=== PATIENT | female | born 1960 | race Caucasian/White ===

== ENCOUNTER 2021-12-03 18:27 | Inpatient (IN) | payer OTHER ==
[~2021-12-03] VITALS: Ht 177.8 cm; Wt 61.0 kg
[2021-12-03 20:08] LABS: BASOPHILS ABSOLUTE AUTO 0.02 K/mm3 (0.00-0.23); BASOPHILS PERCENT AUTO 0 % (0-2); EOSINOPHILS ABSOLUTE AUTO 0.06 K/mm3 (0.00-0.68); EOSINOPHILS PERCENT AUTO 1 % (0-6); Hematocrit 36.8 % (33.0-51.0); Hemoglobin 13.1 g/dL (11.5-16.0); IMMATURE GRAN ABSOLUTE AUTO 0.04 K/mm3 (0.00-0.10); IMMATURE GRAN PERCENT AUTO 1 % (0-1); LYMPHOCYTES ABSOLUTE AUTO 0.71 K/mm3 (0.84-5.20); LYMPHOCYTES PERCENT AUTO 16 % (21-46); MONOCYTES ABSOLUTE AUTO 0.52 K/mm3 (0.16-1.47); MONOCYTES PERCENT AUTO 11 % (4-13); Mean Corpuscular HGB 34.2 pg (26.0-34.0); Mean Corpuscular HGB Conc 35.6 g/dL (31.5-36.5); Mean Corpuscular Volume 96 fL (80-100); Mean Platelet Volume 11.5 fL (9.1-12.4); NEUTROPHILS ABSOLUTE AUTO 3.23 K/mm3 (1.96-9.15); NEUTROPHILS PERCENT AUTO 71 % (41-73); Platelet Count 154 K/mm3 (150-400); RDW Coefficient Variation 13.2 % (11.7-14.2); RDW Standard Deviation 46.2 fL (35.1-46.3); Red Blood Cell Count 3.83 M/mm3 (3.80-5.20); White Blood Cell Count 4.58 K/mm3 (4.00-11.30)
[2021-12-03 20:54] LABS: Albumin, Blood 2.5 g/dL (3.4-5.0); Albumin/Globulin Ratio 0.5 (0.8-1.8); Bun/Creatinine Ratio 22.6 (12.0-20.0); Calcium, Blood 8.2 mg/dL (8.5-10.1); Creatinine, Blood 0.97 mg/dL (0.40-1.00); Globulin, Blood 4.8 g/dL (2.2-4.0); Magnesium, Blood 0.9 mg/dL (1.6-2.4); Potassium, Blood 2.7 mmol/L (3.5-5.5); Total Protein, Blood 7.3 g/dL (6.4-8.2)
[2021-12-03 22:03] LABS: Beta-hydroxybutyrate 0.5 mg/dL (0.2-2.8)
[2021-12-03 22:21] LABS: Albumin, Blood 2.1 g/dL (3.4-5.0); Albumin/Globulin Ratio 0.5 (0.8-1.8); Bilirubin, Direct 0.5 mg/dL (0.0-0.3); Bilirubin, Indirect 0.2 mg/dL (0.1-0.7); Bilirubin, Total 0.7 mg/dL (0.1-1.0); Globulin, Blood 4.1 g/dL (2.2-4.0); Total Protein, Blood 6.2 g/dL (6.4-8.2)
[2021-12-03 22:50] LABS: Base Excess Venous -7.2 mmol/L; Bicarbonate Venous 19.5 mmol/L (24.0-30.0); PCO2 Venous 29.3 mmHg (38-42); pH Blood Venous 7.39 (7.34-7.37)
[2021-12-03 23:02] LABS: International Normalized Ratio 1.04; Prothrombin Time Results 10.9 Sec (9.7-11.5)
--- NOTE | 2021-12-04 04:32 | NUR ---
CALLED TO ROOM BY PRIMARY RN GABO. PT IN SVT WITH RATES TO 200+ PT VERY SYMPTOMATIC WITH THIS. DISCUSSED WITH PT TREATMENT WITH ADENOSINE, AND EXPECTATIONS OF MEDS. CALL MADE TO DR TAY WITH INFORMATION AND PLAN FOR ADENOSINE. 6MG ADENOSINE GIVEN WITH TEMPORARY CORRECTION. FOLLOW UP TWICE WITH [address] TAY TO ROOM ORDER RECEIVED FOR MAG. THIS GIVEN. LABS HAVE BEEN SENT. PRIMARY RN AT BEDSIDE WELL PCU CHARGE AND ICU CHARGE NURSE. PT CURRENTLY IN SINUS RHYTHM. PT TOLERATED THIS FAIR. WILL ASSIST FURTHER IF NEEDED.
[2021-12-04 05:01] LABS: Albumin, Blood 2.3 g/dL (3.4-5.0); Albumin/Globulin Ratio 0.5 (0.8-1.8); Bun/Creatinine Ratio 24.6 (12.0-20.0); Calcium, Blood 7.9 mg/dL (8.5-10.1); Creatinine, Blood 0.65 mg/dL (0.40-1.00); Globulin, Blood 4.3 g/dL (2.2-4.0); Magnesium, Blood 1.6 mg/dL (1.6-2.4); Potassium, Blood 3.9 mmol/L (3.5-5.5); Total Protein, Blood 6.6 g/dL (6.4-8.2)
--- NOTE | 2021-12-04 06:11 | NUR ---
SHIFT SUMMARY PT TO PCU FROM ED AT APROX MIDNIGHT. PT AMBULATED W/ HEAVY 2 PERSON ASSIST FROM ED STRETCHER TO PCU BED. PT ALERT, ORIENTED TO SELF, PLACE, UNAWARE OF DATE. SP02>90% ON RA. VSS. ADMIT INTAKE DONE, PT RESTING IN ROOM. SHORTLY BEFORE 0400 PT CONVERTED TO SVT, HR 200'S SEEN ON TELE. CALL PLACED TO MD TAY. GILBERTO RN IN ROOM WITH THIS RN AND MULTIPLE OTHER RNS. 6MG ADENOSINE PUSH GIVEN W/ TEMPORARY RELIEF. SHORTLY AFTER, RETURNED TO SVT. 2 MORE 12MG ADENOSINE PUSH GIVEN, THIRD TIME WITH MCC SUCCESS. 2G MAG IV PUSH GIVEN. CRASH CART IN ROOM, MD TAY IN ROOM, WELL PCU AND ICU CHARGES. PT TOLERATED WELL. HR CURRENTLY 80'S. PT HAD 2 LARGE INCONTINENT BM, LIQUID, BROWN. C/O OF ABD TENDERNESS, MODERATLY DISTENDED. FLUIDS INFUSED PER EMAR, POTASSIUM INFUSED PER EMAR. CURRENTLY SLEEPING IN ROOM. CALL LIGHT IN REACH. WILL GIVE REPORT TO ONCOMING NURSE.
--- NOTE | 2021-12-04 07:39 | NUR ---
NURSING PCU DAYSHIFT: Assumed care of pt at approx 0700. A/O, very pleasant, cooperative w/care. C/O 5/10 abd pain, denies discomfort elsewhere. Skin is fragile though intact w/no noted breakdown. General weakness t/o and requires assistance w/ADLs. CIWA 6 this a.m. Tele in place, NSR, SBP 140, HR 80-90's, no c/o CP/pressure, no noted edema. L/S cta t/o, denies dyspnea, no noted cough, O2 sat 100% on RA. Abd mildly distended and tender as previously mentioned, BT hyperactive, incontinent of urine and stool per report. PIV x2, NS TKO at this time w/folic acid and thiamine infusing as ordered. Pt denies any current needs or questions regarding plan of care. Call light in reach, ETOH w/d monitored, seizure pads in place. Awaiting rounding from PMD. Cont to monitor for any changes.
[2021-12-04 08:56] LABS: Bun/Creatinine Ratio 22.7 (12.0-20.0); Calcium, Blood 7.9 mg/dL (8.5-10.1); Creatinine, Blood 0.66 mg/dL (0.40-1.00); Potassium, Blood 3.3 mmol/L (3.5-5.5)
[2021-12-04 11:53] LABS: Source, Urine Foley catheter
[2021-12-04 11:56] LABS: Appearance, Urine Hazy (Clear); Bilirubin, Urine Neg (Neg); Blood, Urine 1+ (Neg); Color, Urine Yellow (P-Yellow); Glucose Qualitative, Urine Neg (Neg); Ketones, Urine Neg (Neg); Leukocyte Esterase, Urine 3+ (Neg); Nitrite, Urine Neg (Neg); Protein, Urine Neg (Neg); Specific Gravity, Urine 1.025 (1.003-1.022); Urobilinogen, Urine 1+ (Normal)
[2021-12-04 12:06] LABS: Bacteria Many /hpf; Squamous Epithelial Cells Few /hpf (Few)
[2021-12-04 12:47] LABS: Adenovirus F 40/41 Not Detected (NOT DETECT); Astrovirus Not Detected (NOT DETECT); Campylobacter Sp Not Detected (NOT DETECT); Cryptosporidium Not Detected (NOT DETECT); Cyclospora Cayetanensis Not Detected (NOT DETECT); E. Coli O157 Not Detected (NOT DETECT); Entamoeba Histolytica Not Detected (NOT DETECT); Enteroaggregative E. coli-EAEC Not Detected (NOT DETECT); Enteropathogenic E. coli-EPEC Not Detected (NOT DETECT); Enterotoxigenic E. coli-ETEC Not Detected (NOT DETECT); Giardia Lamblia Not Detected (NOT DETECT); Norovirus GI/GII Not Detected (NOT DETECT); Plesiomonas Shigelloides Not Detected (NOT DETECT); Rotavirus A Not Detected (NOT DETECT); Salmonella Sp Not Detected (NOT DETECT); Sapovirus Not Detected (NOT DETECT); Shiga Toxin-prod E. coli-STEC Not Detected (NOT DETECT); Shigella/Enteroin E. coli-EIEC Not Detected (NOT DETECT); Vibrio Cholerae Not Detected (NOT DETECT); Vibrio Sp Not Detected (NOT DETECT); Yersinia Enterocolitica Not Detected (NOT DETECT)
--- NOTE | 2021-12-04 16:19 | NUR ---
NURSING PCU DAYSHIFT SUMMARY: Pt has done well t/o the shift. Continued to c/o abd discomfort t/o a.m., bladder scan completed resulting in >500 with a post void of >400, FC placed, UA sent to lab. Pt continued to experience loose, jelly, blood tinged stool, specimen sent to lab, results reviewed, abd CT completed, and imodium administered. Respiratory and cardiac status unchanged. Remains SR w/no events reported by telemetry. O2 sat 99-100% on RA w/no reported dyspnea. PT/OT attempted to see pt though pt continued to refuse even after much encouragement from therapy staff and care team. Agreed to work w/PT/OT in a.m. Daughter at bedside t/o afternoon, update provided, questions answered. Pt currently resting comfortably. Denies any questions/needs. Call light in reach, cont to monitor until rpt is given to accepting RN.
[2021-12-05 05:04] LABS: BASOPHILS ABSOLUTE AUTO 0.02 K/mm3 (0.00-0.23); BASOPHILS PERCENT AUTO 1 % (0-2); EOSINOPHILS PERCENT AUTO 3 % (0-6); Hematocrit 35.9 % (33.0-51.0); Hemoglobin 12.2 g/dL (11.5-16.0); IMMATURE GRAN ABSOLUTE AUTO 0.03 K/mm3 (0.00-0.10); IMMATURE GRAN PERCENT AUTO 1 % (0-1); LYMPHOCYTES PERCENT AUTO 24 % (21-46); MONOCYTES PERCENT AUTO 12 % (4-13); Mean Corpuscular HGB 34.4 pg (26.0-34.0); Mean Platelet Volume 11.6 fL (9.1-12.4); NEUTROPHILS PERCENT AUTO 60 % (41-73); Platelet Count 132 K/mm3 (150-400); RDW Coefficient Variation 13.3 % (11.7-14.2); RDW Standard Deviation 49.9 fL (35.1-46.3); Red Blood Cell Count 3.55 M/mm3 (3.80-5.20); White Blood Cell Count 3.35 K/mm3 (4.00-11.30)
[2021-12-05 05:05] LABS: Mean Corpuscular Volume 101 fL (80-100)
[2021-12-05 05:40] LABS: Albumin, Blood 2.2 g/dL (3.4-5.0); Albumin/Globulin Ratio 0.5 (0.8-1.8); Bilirubin, Total 0.9 mg/dL (0.1-1.0); Bun/Creatinine Ratio 15.2 (12.0-20.0); Calcium, Blood 8.3 mg/dL (8.5-10.1); Creatinine, Blood 0.59 mg/dL (0.40-1.00); Globulin, Blood 4.3 g/dL (2.2-4.0); Potassium, Blood 4.2 mmol/L (3.5-5.5); Total Protein, Blood 6.5 g/dL (6.4-8.2)
--- NOTE | 2021-12-05 10:07 | NUR ---
CARE ASSUMPTION THIS RN ASSUMED CARE FROM TAYLOR RN AT 0700. VSS. TELE SR 87. PATIENT IS ALERT AND ORIENTED TO PLACE, TIME, YEAR, MONTH, BUT GOT THE DAY WRONG. PATIENT IS VERY SLEEPY. WILL RESPOND TO VERBAL STIMULI, BUT FALSS BACK ASLEEP. PATIENT STATED "I CANT OPEN MY EYES" THIS RN INFORMED SHE COULD AND SHE OPENED HER EYES FOR THIS RN. PERRLA. PATIENT STATED "I AM SEEING COLORS EVERYWHERE". PATIENT STATED "FEELING FUNNY AND SLEEPY". PATIETN REPROTS NO PAIN. PATIENT REPROTS NO CHEST PAIN/PRESSURE. STRONG RADIAL PULSES. CAP REFILL <3SECONDS. TRACE EDEMA IN LOWER EXTREMITIES. PATIENT REPORTS NO SHORTNESS OF BREATH. CLEAR UPPER LOBES DIM LOWER LOBES. PATIENT ABD IS TENDER IN UPPER QUADRANT AND ACTIVE. GENERALIZED WEAKNESS. SKIN IS INTACT, REDDNESS TO BOTTOM. REPOSITIONING EVERY TWO HOURS. SEE SHIFT ASSESSMENT FOR FURTHER DETAILS. CIWA 2 THIS AM, AND UPAON REASSESSMENT WAS 2 AGAIN. PATIENT HAS NO TREMORS. MD PARRISH IN TO SEE PATIENT THIS AM. DISCUSSED THE PLAN OF CARE, BUT DUE TO PATIENT FALL ASLEEP QUICKLY WAS UNABLE TO HAVE A SUCCESSFUL CONVERSATION AND WOULD COME BACK AGAIN THIS AFTERNOON. PT TRIED TO COME BY TO WORK WITH PATIENT BUT DUE TO PATIENT BEING SLEEPY, THEY STATED THEY WOULD COME BACK THIS AFTERNOON TO TRY AGAIN. PATIENT CALL LIGHT IS WITHIN REACH AND BED IN LOWEST POSITION. PLAN OF CARE IS UP TO DATE AT THIS TIME.
--- NOTE | 2021-12-05 15:06 | NUR ---
Pt stated she wanted to get back to bed. Noted CIWA was 5; Called Dr. Terrell for order for Librium 25 mg to avoid oversedation. Librium was given to the pt and then she was assisted (2 person max assist with geriwalker and gait belt) to transfer from chair to the bed. She was given broth and jello and warm blanket at her request at this time.
--- NOTE | 2021-12-05 17:10 | NUR ---
shift summary this rn gave report to florence shipley. patient neuro remains intact. ciwa score 5. patient has tremors at rest. patient did receive medication per emar and score and the onset is 1-2 hours. this rn informed the rn taking over care. no acute changes. call light within reach. plan of care up to date.
--- NOTE | 2021-12-05 21:29 | NUR ---
ASSUMED CARE OF PATIENT AT APPROXIMATELY 1910 FROM DAVID Aguirre RN. PATIENT SLEEPING IN BED DURING BEDSIDE REPORT. PATIENT ALERT AND ORIENTED TO SELF, LOCATION, AND . PATIENT STATES YEAR IS AND MONTH IS MAY; REORIENTED. CIWA 7. PATIENT IRRITABLE ABOUT NOT BEING ABLE TO EAT; CURRENTLY CLEAR LIQUID DIET. CALL DR. Timothy VOSS TO REPORT PATIENT'S IRRITIABILITY ABOUT DIET; NO ABDOMINAL PAIN, NO NAUSEA, NO VOMITING AND RECIEVED ORDERS TO ADVANCE DIET. PATIENT DENIES PAIN, NUMBNESS, TINGLING, DIZZINESS, OR NAUSEA. Q2H TURNS. NSR ON TELE; OXYGEN SATURATION ABOVE 90% ON ROOM AIR. PG MARTA S/L.
[2021-12-06 03:59] LABS: BASOPHILS ABSOLUTE AUTO 0.02 K/mm3 (0.00-0.23); BASOPHILS PERCENT AUTO 1 % (0-2); EOSINOPHILS ABSOLUTE AUTO 0.06 K/mm3 (0.00-0.68); EOSINOPHILS PERCENT AUTO 2 % (0-6); Hematocrit 29.3 % (33.0-51.0); Hemoglobin 10.1 g/dL (11.5-16.0); Mean Corpuscular HGB 34.8 pg (26.0-34.0); Mean Corpuscular HGB Conc 34.5 g/dL (31.5-36.5); Mean Corpuscular Volume 101 fL (80-100); Mean Platelet Volume 11.7 fL (9.1-12.4); Platelet Count 129 K/mm3 (150-400); RDW Coefficient Variation 13.5 % (11.7-14.2); RDW Standard Deviation 50.3 fL (35.1-46.3); White Blood Cell Count 3.48 K/mm3 (4.00-11.30)
[2021-12-06 04:07] LABS: IMMATURE GRAN ABSOLUTE AUTO 0.02 K/mm3 (0.00-0.10); IMMATURE GRAN PERCENT AUTO 1 % (0-1); LYMPHOCYTES ABSOLUTE AUTO 0.83 K/mm3 (0.84-5.20); LYMPHOCYTES PERCENT AUTO 24 % (21-46); MONOCYTES ABSOLUTE AUTO 0.45 K/mm3 (0.16-1.47); MONOCYTES PERCENT AUTO 13 % (4-13); NEUTROPHILS PERCENT AUTO 60 % (41-73)
[2021-12-06 04:16] LABS: Albumin, Blood 1.9 g/dL (3.4-5.0); Albumin/Globulin Ratio 0.5 (0.8-1.8); Bilirubin, Total 0.5 mg/dL (0.1-1.0); Bun/Creatinine Ratio 15.6 (12.0-20.0); Calcium, Blood 7.7 mg/dL (8.5-10.1); Creatinine, Blood 0.64 mg/dL (0.40-1.00); Globulin, Blood 3.8 g/dL (2.2-4.0); Potassium, Blood 4.8 mmol/L (3.5-5.5); Total Protein, Blood 5.7 g/dL (6.4-8.2)
--- NOTE | 2021-12-06 06:40 | NUR ---
PATIENT SLEPT ABOUT NINE HOURS LAST NIGHT. MEDICATED TWICE FOR CIWA. NO OTHER ACUTE CHANGES TO REPORT.
--- NOTE | 2021-12-06 09:11 | NUR ---
CARE ASSUMPTION THIS RN ASSUMED CARE FROM EMMY Paz RN AT 0700. PATIENT VSS. TELE SR 80S. SPO2 >90% ON RA. PATIENT IS ALERT AND ORIENTED TO MONTH, YEAR, PLACE, NAME, DATE OF , BUT GOT THE DAY WRONG. NEURO IS INTACT. PATINET IS DROWSY. PERRLA. [place] THIS AM 1-2. PATIENT REPORTS NO PAIN. PATIENT REPROTS NO SHORTNESS OF BREATH. CLEAR UPPER LOBES, DIM LOWER LOBES. PATIENT REPORTS NO CHEST PAIN/PRESSURE. PATIENT CAP REFILL <3SECONDS. STRONG RADAIL PULSES AND PEDIS. NO EDEMA NOTED. PATIENT ABD IS TENDER IN UPPER QUADRANT WITH PALPATION, BUT OTHERWISE NO PAIN NOTED. PATIENT CAREY CATH DRAINING WITH GRAVITY THE START OF THE SHIFT, 400 OUT. CAREY CATH DC PER MD ORDER. PATIENT SKIN IS FARGILE, BUT CLEAN. REDDNESS TO BOTTOM. REPOSITIONING EVERY TWO HOURS PATIENT ALLOWS. SEE SHIFT ASSESSMENT FRO FURTHER DETAILS. MD PARRISH INTO SEE PATIENT THIS AM. PATIENT CHANGED TO MEDICAL STATUS NO TELE. TELE HAS BEEN DISCOUNTINUED. PATIENT CAREY WAS DC PER MD ORDER. CAREY DC APPROX 0900, SEE I&O FOR EXACT TIME. PATIENT HAS NOT VOIDED YET, AND INFORMED PATIENT TO CALL RN WHEN NEEDING TO VOID SINCE CAREY IS OUT. PATIENT EDUCATED ON PLAN OF CARE AND ALCOHOL WITHDRAWAL. PLAN OF CARE IS UP TO DATE. CALL LIGHT IS WITHIN REACH AND BED IN LOWEST POSITION. PATIENT TOLERATED REGULAR DIET WITH AM. PATIENT TOOKS MEDICATIONS WHOLE WITH WATER ONE AT A TIME. WILL CONTINUE TO DO HOURLY ROUND PER UNIT PROTOCOL AND PROVIDE CARE.
--- NOTE | 2021-12-06 11:00 | NUR ---
UPDATE PATIENT HAD A COMPLETE BED BATH AND LINEN CHANGED. PATIENT REFUSED TO WORK WITH PHYSICAL THERAPY, STATING SHE WAS TOO TIRED. THIS RN ASKED PATIENT IF SHE WANTED TO GET UP TO CHAIR AND PATIENT REFUSED. PATIENT REPOSITIONED. PATIENT STATES "FEELING MUCH BETTER AND LIKE MYSELF" AFTER SHE HAD THE BED BATH. CALL LIGHT IS WITHIN REACH.
--- NOTE | 2021-12-06 17:01 | NUR ---
SHIFT SUMMARY PATIENT NEURO REMAINS INTACT. CIWA SCORES 0-2 THROUGHOUT THIS SHIFT. PATIENT WORKED WITH OCCUPATIONAL THERAPY TODAY. PATIENT IS STILL A TWO PERSON TRANSFER WITH A GAIT BELT AND FRONT WHEEL WALKER. PATIENT REFUSED TO GET UP TO USE BEDSIDE COMODE, STATING SHE WAS TOO TIRED FROM WORKING WITH THERAPY. PATIENT USED BEDPAN. PATIENT HAD A SMALL BM AND A UNMEASURED VOID AND INCONTINENT EPISODE OF URINE. PATIENT USES CALL LIGHT APPROPRIATELY. REPOSITIONING PATIENT EVERY TWO HOURS THROUGHOUT THE SHIFT. NO ACUTE CHANGES THIS SHIFT. VSS. THIS RN WILL CONTINUE TO MONITOR AND PROVIDE CARE UNTIL HAND OFF WITH NEXT SHIFT.
--- NOTE | 2021-12-06 18:16 | NUR ---
REPORT TO MEDICAL FLOOR RN THIS RN GAVE REPORT TO MEDICAL FLOOR RN CUONG AT ABOUT 1750. POST REPORT PATIENT BELONGINGS GATHERED AND TAKEN UP WITH HER TO NEW ROOM. DAUGHTER AT BEDSIDE AND AWARE OF PLAN OF WITH PATIENT TO NEW ROOM. PATIENT IN NO DISTRESS WHEN LEAVING UNIT OR TRANSFERING TO NEW ROOM. PATIENT DID COMPLAIN OF ABD AND THIS RN INFORMED OF THIS AND THAT PATIENT RECEIVE MED PER EMAR.
--- NOTE | 2021-12-06 18:35 | NUR ---
TRANSFER NOTE PATIENT TRANSFERRED TO MEDICAL FLOOR. PATIENT TRANSFERRED BY SWITCHING BEDS. PATIENTS MOM ARRIVED WITH PATIENT. PATIENT IS IN NO DISTRESS. WILL MONITOR UNTIL OIL TRUCK DRIVER.
--- NOTE | 2021-12-07 05:45 | NUR ---
SHIFT SUMMARY: PT IS A/OX3. SHE IS VERY FATIGUED AND HAS SLEPT THE MAJORITY OF THE SHIFT. SHE HAS NOT USED THE CALL BUTTON FOR NEEDS, BUT WE WILL CONTINUE TO DO FREQUENT MONITORING. SHE IS CONT/INCONTINENT. AURELIO WAS DC'D 12/06 AND SHE HAS VOIDED SINCE. SHE HAS NOT BEEN OOB THIS SHIFT, BUT IT WAS REPORTED SHE IS A 2 PA W/ GAIT. SHE WILL BE PLACEMENT TO REGAIN STRENGTH.
[2021-12-07 08:47] LABS: Bun/Creatinine Ratio 15.8 (12.0-20.0); Calcium, Blood 7.7 mg/dL (8.5-10.1); Creatinine, Blood 0.57 mg/dL (0.40-1.00); Potassium, Blood 4.2 mmol/L (3.5-5.5)
--- NOTE | 2021-12-07 17:59 | NUR ---
SHIFT SUMMARY PATIENT MEDICATED X1 FOR PAIN. PATIENT DENIES NAUSEA AND SHORTNESS OF BREATH. PATIENT IS A 2P ASSIST FOR TRANSFERS. PT SUGGESTED WE USE A SIT TO STAND OR VERA LIFT. PATIENT DID WORK WITH PT TODAY AFTER A LOT OF ENCOURAGEMENT BY MULTIPLE STAFF. PATIENT WAS UNABLE TO STAND TODAY. PATIENT HAD AN US OF THE ABDOMEN THIS AFTERNOON. PATIENT IS EATING AND DRINKING WELL. POWERGLIDE DRESSING CHANGED, VERY POSITIONAL. PATIENT IS PLEASANT AND COOPERATIVE WITH CARE.
--- NOTE | 2021-12-08 04:01 | NUR ---
SHIFT SUMMARY: PT IS A/OX3. SHE DOES NOT USE CALL BUTTON FOR NEEDS. SHE HAS BEEN MONITORED FREQUENTLY FOR INCONTINENCE OF BLADDER/BOWEL. POWER GLIDE TO MARTA DOES NOT DRAW FOR LABS. CALL LIGHT IS WITHIN REACH AND WE'LL CONTINUE TO MONITOR.
[2021-12-08 05:46] LABS: Bun/Creatinine Ratio 18.6 (12.0-20.0); Calcium, Blood 8.2 mg/dL (8.5-10.1); Creatinine, Blood 0.59 mg/dL (0.40-1.00); Potassium, Blood 4.5 mmol/L (3.5-5.5)
--- NOTE | 2021-12-08 15:15 | NUR ---
SHIFT SUMMARY PT RESTING QUIETLY AT START OF SHIFT. WOKE EASILY FOR CARE. VERY WEAK AND SLOW MOVING. ABLE TO FEED HERSELF AND TAKE MEDS WHOLE WITH H2O. NO C/O. P/T HERE THIS AFTERNOON TO WORK WITH PT. PT OOB TO STAND WITH 2 P/T STAFF. PER DR LINDSEY, PT TO D/C TO HOME WITH H/H TOMORROW. PER SHIFT REPORT, PT'S CUSTOMER CARE PROFESSIONAL IS HER DAUGHTER. PLEASANT AND CO-OP WITH CARE. DENIES FURTHER NEEDS AT THIS TIME. CALL LT IN REACH.
[2021-12-09 05:01] LABS: Calcium, Blood 8.1 mg/dL (8.5-10.1); Creatinine, Blood 0.58 mg/dL (0.40-1.00); Potassium, Blood 4.2 mmol/L (3.5-5.5)
--- NOTE | 2021-12-09 06:00 | NUR ---
SHIFT SUMMARY: PT WAS MORE ALERT THIS SHIFT. SHE WAS COOPERATIVE WITH CARE. SHE DID NOT HAVE ANY C/O PAIN. SHE IS A PROBABLE DISCHARGE HOME WITH HH. WE'LL CONTINUE TO MONITOR THE REST OF THE SHIFT.
--- NOTE | 2021-12-09 14:56 | NUR ---
SHIFT SUMMARY PT AWAKE THIS AM DURING SHIFT REPORT. PLEASANT AND CO-OP WITH CARE. SOME ATTEMPT MADE TO WORK WITH PT/OT TODAY, BUT IS VERY WEAK AND DECONDITIONED AND UNABLE TO PARTICIPATE NEEDED. PT WAS TO D/C TO HOME WITH H/H, BUT NEEDING MORE ASSISTANCE WHEN FAMILY IS AT WORK. HOSPITALISTS HERE TO SEE PT SEVERAL TIMES TODAY. DANCE THERAPIST WORKING ON SAFE D/C PLAN. PT IS CONTINENT/INCONTINENT OF BOWEL AND BLADDER. CALLS FOR BED FROST WHEN AWAKE. RESTING QUIETLY AT THIS TIME. CALL LT IN REACH.
[2021-12-10 04:49] LABS: Bun/Creatinine Ratio 17.9 (12.0-20.0); Calcium, Blood 8.4 mg/dL (8.5-10.1); Creatinine, Blood 0.56 mg/dL (0.40-1.00); Potassium, Blood 3.6 mmol/L (3.5-5.5)
--- NOTE | 2021-12-10 05:53 | NUR ---
SUMMARY NO NEW ISSUES NOTED. PT PLESANT AND COOPERATIVE. PT SLEPT FOR MOST OF SHIFT WITHOUT COMPLAINT. CALL LIGHT IN REACH AND BED ALARM ON
--- NOTE | 2021-12-10 15:08 | NUR ---
SHIFT SUMMARY PT AWAKE AT START OF SHIFT, RESTING QUIETLY WATCHING TV. INCONTINENT OF URINE; PT CLEANED AND CHANGED. UA ORDERED EARLY, AND PT AGREED TO TRY AND USE BEDPAN; UNSUCCESSFUL. PT OOB TO CHAIR FOR BREAKFAST. PT NOT WANTING TO GET UP AT FIRST, BUT WAS ABLE TO TAKE A COUPLE OF STEPS TO MAKE IT TO THE CHAIR USING FWW, GB, AND 2P ASSIST. PT LATER BACK TO BED AND GIVEN BED BATH. P/T IN TO WORK WITH PT. PT WAITING TX TO REHAB FAUCILITY. DENIES FURTHER NEEDS AT THIS TIME. CALL LT IN REACH.
[2021-12-11 03:45] LABS: Base Excess Venous -5.1 mmol/L; Bicarbonate Venous 20.9 mmol/L (24.0-30.0); Hematocrit 30.1 % (33.0-51.0); Hemoglobin 10.6 g/dL (11.5-16.0); Mean Corpuscular HGB 34.6 pg (26.0-34.0); Mean Corpuscular HGB Conc 35.2 g/dL (31.5-36.5); Mean Corpuscular Volume 98 fL (80-100); Mean Platelet Volume 11.9 fL (9.1-12.4); PCO2 Venous 30.7 mmHg (38-42); Platelet Count 152 K/mm3 (150-400); RDW Coefficient Variation 13.5 % (11.7-14.2); RDW Standard Deviation 48.4 fL (35.1-46.3); Red Blood Cell Count 3.06 M/mm3 (3.80-5.20); pH Blood Venous 7.41 (7.34-7.37)
[2021-12-11 04:13] LABS: BAND PERCENT MAN 2 % (0-8); BASOPHILS PERCENT MAN 0 % (0-2); EOSINOPHILS ABSOLUTE MAN 0.11 K/mm3 (0.00-0.68); EOSINOPHILS PERCENT MAN 3 % (0-6); LYMPHOCYTES ABSOLUTE MAN 0.89 K/mm3 (0.84-5.20); LYMPHOCYTES PERCENT MAN 23 % (21-46); MONOCYTES ABSOLUTE MAN 0.62 K/mm3 (0.16-1.47); MONOCYTES PERCENT MAN 16 % (4-13); NEUTROPHILS ABSOLUTE MAN 2.26 K/mm3 (1.96-9.15); SEG NEUTROPHILS PERCENT MAN 56 % (41-73); TOTAL CELLS COUNTED 100
--- NOTE | 2021-12-11 04:14 | NUR ---
0300 PT FOUND TO HAVE RAPID PULSE. PT EKG SHOWED SVT IN 190'S. PT BP WAS FOUND TO BE <90'S SYSTOLIC. DR HURST CALLED AND SHE ORDERED LOPRESSOR. BP RECHECKED PRIOR TO LOPRESSOR. SBP IN 60'S. AND A GRADUATE TEACHER EDUCATION WAS INITIATED. PT WAS TX BY GRADUATE TEACHER EDUCATION AND DR HURST ORDERED PT BE TRANSFERED TO ICU. PT FAMILY WAS CALLED AND INFORMED OF PT BEING TRANSFERED. PT WAS NOT IN DISTRESS. PT DENIED CX PAIN OR SOB.
[2021-12-11 04:27] LABS: Magnesium, Blood 1.3 mg/dL (1.6-2.4)
[2021-12-11 04:28] LABS: Anion Gap 10 mmol/L (6-16); Blood Urea Nitrogen 17 mg/dL (8-24); Bun/Creatinine Ratio 25.6 (12.0-20.0); CO2, Blood 19 mmol/L (21-32); Calcium, Blood 8.2 mg/dL (8.5-10.1); Chloride, Blood 101 mmol/L (98-108); Creatinine, Blood 0.67 mg/dL (0.40-1.00); Glomerular Filtration Rate 98 (60-); Glucose, Blood 101 mg/dL (70-99); Phosphorus, Blood 4.2 mg/dL (2.5-4.9); Sodium, Blood 130 mmol/L (136-145)
--- NOTE | 2021-12-11 04:39 | NUR ---
AT 0346 PATIENT ARRIVED TO ICU 11 ICU STATUS AFTER PATTERN PUNCHER IN RM 312 FOR RECURRING SVT WITH RATE UP TO 180'S. DOCTOR ARIS NOTIFIED OF RETURN TO RATE 170'S PATIENT CONTINUES TO BE ASYMPTOMATIC. A&O X3 NO C/O PAIN OR SOB. CONSULT TO DOCTOR RIGGS CARDIOLOGY REGARDING AMIODARONE OR CARDIZEM DRIP. CALL PLACED AND AMIODARONE DRIP ORDERED. NOW BOLUS COMPLETE AND DRIP INFUSING PATIENT SINUS RHYTHM 80'S CONTINUES WITH NO COMPLAINTS.
--- NOTE | 2021-12-11 05:03 | NUR ---
DOCTOR ARIS NOTIFIED OF POST BLOOD COLLECTOR LABS, MAGNESIUM 1 GM IV ORDERED
--- NOTE | 2021-12-11 06:04 | NUR ---
SUMMARY PATIENT RESTING QUIETLY, AWAKENS TO SLIGHT STIMULI. AMIO DRIP INFUSING. WITH RATE 80'S AT TIMES JUMPING UP TO 150'S. CONTINUES TO HAVE NO COMPLAINTS OTHER THAN SHE FEELS COLD. MAG RIDER INFUSING. ATTENDS IN PLACE DUE TO INCONTINENCE
--- NOTE | 2021-12-11 17:27 | NUR ---
SHIFT SUMMARY NO ACUTE CHANGES THIS SHIFT. PT SLEPT OFF AND ON THROUGHOUT THE DAY. PT AWAKENS EASILY AND ANSWERS QUESTIONS APPROPRIATELY. PT IS FORGETFUL AT TIMES AND NEEDS REORIENTATION AFTER WAKING. PT HAS DENIED PAIN OR DISCOMFORT THIS SHIFT. PT WITH A COUPLE OF EPISODES OF SVT, HR 140-170'S THAT ARE SELF LIMITING. PT REMAINED ASYMPTOMATIC DURING SVT EPISODES, THEN RETURNED TO NSR 80'S. PT STABLE. PT ON RA. AMIODARONE GTT INFUSING AT 0.5 MG/HR. PT REMAINS INCONTINENT OF URINE, ATTENDS IN PLACE. NO FAMILY CALLED OR AT BEDSIDE THIS SHIFT. WILL CONTINUE TO MONITOR AND REPORT OFF TO ONCOMING RN.
--- NOTE | 2021-12-11 19:00 | NUR ---
ASSUMED CARE ASSUMED CARE OF PATIENT. AWAKE AND ALERT, WATCHING TV. ORIENTED X 3. COOPERATIVE WITH CARE. SLOW VERBAL RESPONSE NOTED. DENIES C/O PAIN OR DISCOMFORT. MONITOR SHOWS NSR, RATE 80s. BP STABLE. AMIODARONE INFUSING AT 0.5MCG/MIN PER ORDER. TAKING PO WITHOUT DIFFICULTY. INCONTINENT OF URINE- ATTENDS IN PLACE. SEE SHIFT ASSESSMENT FOR FULL ASSESSMENT.
[2021-12-12 05:04] LABS: BASOPHILS ABSOLUTE AUTO 0.02 K/mm3 (0.00-0.23); BASOPHILS PERCENT AUTO 0 % (0-2); EOSINOPHILS ABSOLUTE AUTO 0.09 K/mm3 (0.00-0.68); EOSINOPHILS PERCENT AUTO 2 % (0-6); Hematocrit 29.5 % (33.0-51.0); Hemoglobin 10.1 g/dL (11.5-16.0); IMMATURE GRAN ABSOLUTE AUTO 0.04 K/mm3 (0.00-0.10); IMMATURE GRAN PERCENT AUTO 1 % (0-1); LYMPHOCYTES ABSOLUTE AUTO 1.05 K/mm3 (0.84-5.20); LYMPHOCYTES PERCENT AUTO 23 % (21-46); MONOCYTES ABSOLUTE AUTO 0.84 K/mm3 (0.16-1.47); MONOCYTES PERCENT AUTO 19 % (4-13); Mean Corpuscular HGB 34.5 pg (26.0-34.0); Mean Corpuscular HGB Conc 34.2 g/dL (31.5-36.5); Mean Corpuscular Volume 101 fL (80-100); Mean Platelet Volume 11.5 fL (9.1-12.4); NEUTROPHILS ABSOLUTE AUTO 2.45 K/mm3 (1.96-9.15); NEUTROPHILS PERCENT AUTO 55 % (41-73); Platelet Count 185 K/mm3 (150-400); RDW Coefficient Variation 13.6 % (11.7-14.2); RDW Standard Deviation 50.5 fL (35.1-46.3); Red Blood Cell Count 2.93 M/mm3 (3.80-5.20); White Blood Cell Count 4.49 K/mm3 (4.00-11.30)
[2021-12-12 05:25] LABS: Bun/Creatinine Ratio 23.5 (12.0-20.0); Calcium, Blood 7.7 mg/dL (8.5-10.1); Creatinine, Blood 0.6 mg/dL (0.40-1.00); Magnesium, Blood 1.4 mg/dL (1.6-2.4); Potassium, Blood 4.1 mmol/L (3.5-5.5)
--- NOTE | 2021-12-12 06:09 | NUR ---
SHIFT SUMMARY NO ACUTE CHANGES DURING NOC. SLEPT INTERMITTENTLY. ROUSES EASILY TO STIMULI. PT IS SLIGHTLY DISORIENTED AND CONFUSED UPON FIRST WAKING UP. REORIENTS EASILY. PT REMAINED IN NSR T/O NOC WITHOUT TACHYCARDIA. BP STABLE. IV AMIODARONE HAS BEEN OFF SINCE 404. RA SATS STABLE. PT HAS BEEN TACHYPNEIC WITH RR UP TO LOW 30s AT TIMES. RESPIRATIONS ARE EVEN AND UNLABORED. DENIES FEELING SOB OR DYSPNEIC. TOLERATING DIET. PT IS INCONTINENT OF URINE- ATTENDS IN PLACE. DENIES C/O PAIN OR DISCOMFORT. WILL REPORT TO ONCOMING RN WHEN AVAILABLE.
--- NOTE | 2021-12-12 16:37 | NUR ---
SHIFT SUMMARY NO ACUTE CHANGES THIS SHIFT. PT HAS SLEPT MOST OF THE AFTERNOON. PT AWAKENS EASILY AND IS ALERT AND ORIENTED WHEN AWAKE. PT WITH PERIODS OF FORGETFULNESS. PT DENIES PAIN OR DISCOMFORT. PT WORKED WITH PT AND OT TODAY AND SAT IN BEDSIDE CHAIR FOR SOME TIME. VITAL SIGNS STABLE. PT REMAINS INCONTINENT OF URINE, ATTENDS IN PLACE. PT PENDING DISCHARGE WHEN ROOM AT A FACILITY BECOMES AVAILABLE. WILL CONTINUE TO MONITOR AND REPORT OFF TO ONCOMING RN.
--- NOTE | 2021-12-13 05:48 | NUR ---
SHIFT SUMMARY NO ACUTE CHANGES DURING NOC. SLEPT INTERMITTENTLY. ROUSES EASILY TO STIMULI. PT IS SLIGHTLY DISORIENTED AND CONFUSED UPON FIRST WAKING UP. REORIENTS EASILY. PT REMAINED IN NSR T/O NOC WITHOUT TACHYCARDIA. BP STABLE. RA SATS 93-97. PT HAS BEEN TACHYPNEIC WITH RR 24-32. RESPIRATIONS ARE EVEN AND UNLABORED. PT IS INCONTINENT OF URINE- X2 EPISODES ATTENDS IN PLACE. DENIES C/O PAIN OR DISCOMFORT. WILL REPORT TO ONCOMING RN WHEN AVAILABLE.
--- NOTE | 2021-12-13 07:32 | NUR ---
REPORT FROM PM RN, PATIENT IN NO DISTRESS, SLEEPING, CALL LIGHT WITH IN REACH
--- NOTE | 2021-12-13 14:41 | NUR ---
TRANSFERRED TO MEDICAL FLOOR ROOM 334, REPORT TO SUKUMAR CABEZAS, PATIENT ALERT AND ORIENTED YULIYA NEEDS KNOWN, PATIENTS CALL LIGHT IN REACH
--- NOTE | 2021-12-13 15:28 | NUR ---
PT DISCHARGED WITH ALL PAPERWORK REVIEWED AND EDUCATIONAL MATERIAL SENT WITH PT NO DISTRESS NOTED. PT INDEPENDENT IN ROOM AND ABLE TO MAKE NEEDS KNOWN. ESCORTED OUT VIA WHEELCHAIR WITH PERSONAL BELONGINGS.
--- NOTE | 2021-12-13 15:33 | NUR ---
PT ARRIVED AO AND COOPERATIVE OF CARE. NO DISTRESS NOTED AND CALL LIGHT PLACED WITHIN REACH. BED ALARM IN PLACE. CARE GIVEN OVER TO BLUE RN AT 1530.
--- NOTE | 2021-12-13 17:40 | NUR ---
SUMMARY- ASSUMED CARE OF PT THIS AFTERNOON, PT HAS BEEN SLEEPING COMFORTABLY SINCE TAKING OVER. NO CONCERNS NOTED.
--- NOTE | 2021-12-13 19:18 | NUR ---
Review of pt needs and symptoms. pt having some increased neck pain from being in bed. Gave her a neck pillow with brian. pt distraught by her situation. she thinks she cannot go back home to live. She know she needs rehab. She can follow conversation but not well she drift back into the past. She may be starting to have some early dementia. She is very fatigued and weak and without hope. She is willing to go anywhere for rehab. will follow up.
--- NOTE | 2021-12-14 03:46 | NUR ---
PT A/OX4, VERY PLEASANT AND ANY TO MAKE NEEDS KNOWN. PT SLEPT MAJORITY OF THE NIGHT. INCONTINET OF URINE. PT C/O PAIN TO BUE STATES THAT ITS FROM HAVING BP CONTINOUSLY MONITORED WHILE IN ICU. PT PREFERS BP CHECK ON WRIST. OTHERWISE NO NEW COMPLAINS THIS SHIFT.
--- NOTE | 2021-12-14 17:28 | NUR ---
NO ACUTE CHANGES AT THIS TIME.PT IS INCONENT. PT HAS BEEN SLEEPING MOST OF THE DAY. PT CAN MAKE NEEDS KNOWN. DENIED PAIN AT THIS TIME. CALL LIGHT IS WITHIN REACH WILL CONTINUE TO MONITOR.
--- NOTE | 2021-12-15 07:06 | NUR ---
ADMITTED WITH METABOLIC ACIDOSIS. ICU DOWNGRADE. PT AAOX4 THROUGHOUT SHIFT. HS MEDICATIONS ADMINISTERED WITHOUT COMPLAINT. BRIEFS CHANGED THROUGHOUT SHIFT X3. GENERALIZED WEAKNESS. HISTORY OF ETOH MAKING PLACEMENT DIFFICULT. NO ISSUES NOTED THORUGHOUT SHIFT.
--- NOTE | 2021-12-15 17:16 | NUR ---
NO ACUTE CHANGES. PT IS ALERT, BUT WILL TAKE LONG NAPS. PT TRYS TO HELP TURN HERSELF IN BED, BUT IS STILL WEAK. PT IS INCONTENT, BUT AT TIMES WILL REQUEST BED FROST. PT IS RESTING WITH CALL LIGHT IN REACH WILL CONTINUE TO MONITOR.
--- NOTE | 2021-12-16 19:17 | NUR ---
SHIFT SUMMARY: PT A/O X 4, WOULD NOT ATTEMPT TO GET UP TO USE BSC STATING SHE WAS "TOO WEAK". PT USED BEDPAN. SHE DID HAVE 2 WATERY BROWN STOOLS. NO BLOOD OBSERVED IN STOOL. PT REPORTED CRAMPS IN ABD POST 2ND EPISODE OF DIARRHEA AND GIVEN MAALOX WHICH WAS EFFECTIVE IN TREATING HER STOMACH CRAMPS. NO OTHER CONCERNS AT THIS TIME.
--- NOTE | 2021-12-17 06:31 | NUR ---
PT ADMITTED WITH ETOH WITHDRAWAL ASSOCIATED WEAKNESS. CARDIAC COMPLICATIONS PROLONGING HOSPITALIZATION, WHILE GENERAL DECONDITIONING MAKING PLACEMENT TO ALTERNATE FACILITY DIFFICULT. PT HAS BECOME MORE DEPRESSED THROUGOUT HER STAY; WANTS VERY MUCH TO GAIN STRENGTH SO THAT DISCHARGE BECOMES POSSIBLE. PT SLEPT THROUGHOUT SHIFT. NO ISSUES NOTED.
[2021-12-17] MEDS ORDERED: GABA300 PO (12:02)
[2021-12-17] MEDS ORDERED: B-1100 M1 PO (12:02)
[2021-12-17] MEDS ORDERED: FOLI1 PO (12:02)
[2021-12-17] MEDS ORDERED: Amiodarone HCl200 MG PO (12:03)
--- NOTE | 2021-12-17 18:30 | NUR ---
DISCHARGE PATIENT TRANSPORTED VIA WHEELCHAIR TO PRIVATE VEHICLE. DISCHARGE INSTRUCTIONS EXPLAINED TO PATIENT. PATIENT STATED UNDERSTANDING. PACKET SENT WITH PATIENT. BELONGINGS SENT WITH PATIENT. IV REMOVED WITHOUT DIFFICULTY. TELE REMOVED WITHOUT DIFFICULTY. MEDICATIONS FAXED TO PREFERRED PHARMACY. DAUGHTER UPDATED ON PLAN FOR DISCHARGE TODAY. PCP APPOINTMENT MADE FOR 12/20 AT 11:20AM VIA TELEHEALTH. PATIENT AND DAUGHTER NOTIFIED.
== END 2021-12-17 18:23 | disposition home or self-care (01) | DRG 897 ==
LOC: ER 18:27 → PCU 22:01 → ERHOLD 22:01 → ICUW 22:01 → PCU 12-04 00:03 → MEDS 12-06 18:02 → ICUW 12-11 04:04 → MEDS 12-13 14:29
PROVIDERS: Emergency Medicine; Family Medicine; Hospitalist; Internal Medicine; Student in an Organized Health Care Education/Training Program; ADMIT Internal Medicine
PROC: HZ2ZZZZ Detoxification Services for Substance Abuse Treatment (ICD-10-PCS; principal; 2021-12-03)
DX: F10.239 Alcohol dependence with withdrawal, unspecified (principal); I47.1 Supraventricular tachycardia; E87.1 Hypo-osmolality and hyponatremia; E87.2 Acidosis; N39.0 Urinary tract infection, site not specified; E72.20 Disorder of urea cycle metabolism, unspecified; Z68.1 Body mass index [BMI] 19.9 or less, adult; E44.1 Mild protein-calorie malnutrition; Z66 Do not resuscitate; F17.210 Nicotine dependence, cigarettes, uncomplicated; E83.42 Hypomagnesemia; E87.6 Hypokalemia; K80.20 Calculus of gallbladder without cholecystitis without obstruction; N20.0 Calculus of kidney; E83.51 Hypocalcemia; I95.9 Hypotension, unspecified
CPT/HCPCS: 36415; 74176; 76705; 80048; 80053; 80069; 80076; 81001; 82010; 82140; 82330; 82607; 82746; 82803; 83690; 83735; 83880; 84443; 84484; 85007; 85025; 85027; 85610; 85730; 87077; 87086; 87186; 87507; 93005; 93010; 93306; 94760; 96365; 96366; 96368; 96375; 97110; 97116; 97162; 97166; 97530; 97535; 99285-25; A9270; C1751; G0480; J0153; J0282; J0610; J0696; J1650; J3411; J3475; J3480; J7030; J7040; J7050; J7060; J7120

== ENCOUNTER 2022-10-14 15:10 | Emergency (ER) | payer OTHER ==
[~2022-10-14] VITALS: Ht 172.7 cm; Wt 59.0 kg
[~2022-10-14 15:10] MED LIST: Amiodarone HCl200 MG PO; B-1100 M1 PO; FOLI1 PO; GABA300 PO
[2022-10-14 16:01] LABS: BASOPHILS PERCENT AUTO 0 % (0-2); EOSINOPHILS ABSOLUTE AUTO 0.09 K/mm3 (0.00-0.68); EOSINOPHILS PERCENT AUTO 1 % (0-6); Hematocrit 35.3 % (33.0-51.0); Hemoglobin 12.4 g/dL (11.5-16.0); IMMATURE GRAN ABSOLUTE AUTO 0.03 K/mm3 (0.00-0.10); IMMATURE GRAN PERCENT AUTO 0 % (0-1); LYMPHOCYTES PERCENT AUTO 31 % (21-46); MONOCYTES ABSOLUTE AUTO 0.74 K/mm3 (0.16-1.47); MONOCYTES PERCENT AUTO 11 % (4-13); Mean Corpuscular HGB 31.8 pg (26.0-34.0); Mean Corpuscular HGB Conc 35.1 g/dL (31.5-36.5); Mean Corpuscular Volume 91 fL (80-100); Mean Platelet Volume 10.2 fL (9.1-12.4); NEUTROPHILS ABSOLUTE AUTO 3.79 K/mm3 (1.96-9.15); NEUTROPHILS PERCENT AUTO 56 % (41-73); Platelet Count 177 K/mm3 (150-400); RDW Coefficient Variation 12.7 % (11.7-14.2); RDW Standard Deviation 41.9 fL (35.1-46.3); White Blood Cell Count 6.75 K/mm3 (4.00-11.30)
[2022-10-14 16:16] LABS: Albumin, Blood 3.8 g/dL (3.4-5.0); Albumin/Globulin Ratio 0.9 (0.8-1.8); Bilirubin, Total 0.2 mg/dL (0.1-1.0); Bun/Creatinine Ratio 8.1 (12.0-20.0); Calcium, Blood 9.2 mg/dL (8.5-10.1); Creatinine, Blood 0.74 mg/dL (0.40-1.00); Globulin, Blood 4.2 g/dL (2.2-4.0); Potassium, Blood 4.3 mmol/L (3.5-5.5)
[2022-10-14 18:30] VITALS: BP 173/75
== END 2022-10-14 18:49 | disposition home or self-care (01) ==
LOC: ER 15:10
PROVIDERS: Physician Assistant
DX: E87.1 Hypo-osmolality and hyponatremia (principal); F10.21 Alcohol dependence, in remission; Z79.899 Other long term (current) drug therapy; Z87.891 Personal history of nicotine dependence
CPT/HCPCS: 80053; 85025; 93005; 93010; J1885; J7030

== ENCOUNTER → 2022-10-24 | Outpatient (CLI) | payer OTHER ==
[2022-10-24 15:11] LABS: BASOPHILS ABSOLUTE AUTO 0.01 K/mm3 (0.00-0.23); BASOPHILS PERCENT AUTO 0 % (0-2); EOSINOPHILS ABSOLUTE AUTO 0.14 K/mm3 (0.00-0.68); EOSINOPHILS PERCENT AUTO 2 % (0-6); Hematocrit 35.4 % (33.0-51.0); Hemoglobin 12.2 g/dL (11.5-16.0); IMMATURE GRAN ABSOLUTE AUTO 0.02 K/mm3 (0.00-0.10); IMMATURE GRAN PERCENT AUTO 0 % (0-1); LYMPHOCYTES PERCENT AUTO 31 % (21-46); MONOCYTES ABSOLUTE AUTO 0.73 K/mm3 (0.16-1.47); MONOCYTES PERCENT AUTO 13 % (4-13); Mean Corpuscular HGB 31.5 pg (26.0-34.0); Mean Corpuscular HGB Conc 34.5 g/dL (31.5-36.5); Mean Corpuscular Volume 92 fL (80-100); Mean Platelet Volume 11.6 fL (9.1-12.4); NEUTROPHILS ABSOLUTE AUTO 3.07 K/mm3 (1.96-9.15); NEUTROPHILS PERCENT AUTO 53 % (41-73); Platelet Count 182 K/mm3 (150-400); RDW Standard Deviation 43.1 fL (35.1-46.3); Red Blood Cell Count 3.87 M/mm3 (3.80-5.20); White Blood Cell Count 5.77 K/mm3 (4.00-11.30)
[2022-10-24 15:31] LABS: Alanine Aminotransfer (ALT/SGP 19 U/L (12-78); Albumin, Blood 3.8 g/dL (3.4-5.0); Alk Phos 149 U/L (50-136); Anion Gap 6 mmol/L (6-16); Bilirubin, Total 0.5 mg/dL (0.1-1.0); Blood Urea Nitrogen 6 mg/dL (8-24); Bun/Creatinine Ratio 7.9 (12.0-20.0); CHOL/HDL RATIO 2.3; CO2, Blood 19 mmol/L (21-32); Calcium, Blood 8.8 mg/dL (8.5-10.1); Chloride, Blood 108 mmol/L (98-108); Cholesterol 132 mg/dL (50-200); Creatinine, Blood 0.76 mg/dL (0.40-1.00); Glomerular Filtration Rate 87 (60-); Glucose, Blood 89 mg/dL (70-99); HDL Cholesterol 57 mg/dL (>39); Iron Serum 68 ug/dL (50-170); Low Density Lipoprotein Chol 55 mg/dL (0-110); Percent Saturation 21.5 % (15.0-50.0); Potassium, Blood 4.2 mmol/L (3.5-5.5); Sodium, Blood 133 mmol/L (136-145); Total Iron Binding Capacity 316 ug/dL (250-450); Triglycerides 101 mg/dL (30-160); Very Low Density Lipoprot Chol 20 mg/dL (6-32)
[2022-10-24 16:06] LABS: Albumin/Globulin Ratio 0.9 (0.8-1.8); Aspartate Aminotrans (AST/SGOT 12 U/L (12-37); Ferritin, Serum 56 ng/mL (8-252); Globulin, Blood 4.2 g/dL (2.2-4.0); Thyroid Stimulating Hormone 0.955 uIU/mL (0.360-4.800)
== END | disposition home or self-care (01) ==
LOC: LAB SHORT 14:10 → LAB 14:10
PROVIDERS: Nurse Practitioner Family
DX: Z13.220 Encounter for screening for lipoid disorders (principal); I10 Essential (primary) hypertension; E55.9 Vitamin D deficiency, unspecified; R53.81 Other malaise; R53.83 Other fatigue
CPT/HCPCS: 80053; 80061; 82306; 82607; 82728; 82746; 83540; 83550; 84443; 85025

== ENCOUNTER 2023-05-06 13:47 | Day surgery (SDC) | payer MEDICARE, OTHER ==
[~2023-05-06] VITALS: Ht 170.2 cm; Wt 71.8 kg
[~2023-05-06 13:47] MED LIST changes: +DOCU100 PO; +LOSARTAN-HCTZ1 EACH; +MOTRIN IB200 MG; +Vitamin D2000 UNIT PO
--- NOTE | 2023-05-06 15:11 | NUR ---
05/06/23 1511 Dorcas Powers TETRACAINE PLACED IN RIGHT EYE AT 1453. PLEDGET PLACED IN RIGHT EYE AT 1454. PATIENT TOLERATED WELL.
[2023-05-06 16:05] VITALS: BP 165/69
== END 2023-05-06 16:05 | disposition home or self-care (01) ==
LOC: ORSCSDS 13:47
PROVIDERS: Ophthalmology
PROC: 08RJ3JZ Replacement of Right Lens with Synthetic Substitute, Percutaneous Approach (ICD-10-PCS; principal; 2023-05-06 15:30)
DX: H25.11 Age-related nuclear cataract, right eye (principal); I10 Essential (primary) hypertension; Z79.899 Other long term (current) drug therapy
CPT/HCPCS: J2250; J3010; J3301; J7040; V2632

== ENCOUNTER 2023-05-13 13:40 | Day surgery (SDC) | payer MEDICARE, OTHER ==
[2023-05-13 16:12] VITALS: BP 144/80
== END 2023-05-13 16:35 | disposition home or self-care (01) ==
LOC: ORSCSDS 13:40
PROVIDERS: Ophthalmology
PROC: 08RK3JZ Replacement of Left Lens with Synthetic Substitute, Percutaneous Approach (ICD-10-PCS; principal; 2023-05-13 15:30)
DX: H25.12 Age-related nuclear cataract, left eye (principal); Z96.1 Presence of intraocular lens; I10 Essential (primary) hypertension; G62.9 Polyneuropathy, unspecified; Z79.899 Other long term (current) drug therapy; F17.210 Nicotine dependence, cigarettes, uncomplicated
CPT/HCPCS: J2250; J3010; J3301; J7040; V2632

== ENCOUNTER → 2023-05-22 | Outpatient (CLI) | payer MEDICARE, OTHER ==
[2023-05-22 20:36] LABS: Albumin, Blood 3.8 g/dL (3.4-5.0); Bilirubin, Total 0.5 mg/dL (0.1-1.0); Bun/Creatinine Ratio 13.7 (12.0-20.0); Calcium, Blood 8.4 mg/dL (8.5-10.1); Creatinine, Blood 0.88 mg/dL (0.40-1.00); Potassium, Blood 3.9 mmol/L (3.5-5.5); Total Protein, Blood 7.8 g/dL (6.4-8.2)
== END | disposition home or self-care (01) ==
LOC: LAB SHORT 18:41 → LAB 18:41
PROVIDERS: Nurse Practitioner Family
DX: E87.1 Hypo-osmolality and hyponatremia (principal)
CPT/HCPCS: 36415; 80053